=== PATIENT | male | born 1985 | race Caucasian/White ===

== ENCOUNTER 2017-05-26 07:43 | Emergency (ER) | payer OTHER ==
--- NOTE | ~2017-05-26 | CR21 ---
[facility]. [facility] A Service of [facility] & [facility] RADIOLOGY TEXT RESULTS PATIENT: RD LAUGHLIN LOCATION: SED : [birth year] UNIT #: [id number] AGE: [address]: Konstantin Morse MD SEX: M ORDER DR: [id number] [place] [id number] E MR#: [id number] Acc #: [id number] NAME: RD LAUGHLIN : 1985 SEX: M STUDY DATE/TIME: 05/26/2017 8:06 UNIT: SED ROOM: STUDY DESCRIPTION: CR Ankle Min 3 Views Rt Attending Physician: Konstantin Morse M.D. Ordering Physician: Konstantin Morse M.D. Primary Care Physician: No Primary Care Physician MEDICAL IMAGING REPORT This report is preliminary unless electronic signature is present. EXAM 3 views of the right foot. INDICATIONS Pain along the bottom of the foot and posterior ankle since Wednesday. This started while the patient was cutting grass. FINDINGS No acute fracture or subluxation of the right ankle is identified. Patient has some mild enthesopathic changes at the insertion of the Achilles tendon. No aggressive osseous abnormalities are seen. There are no focal soft tissue abnormalities. IMPRESSION No acute disease. Dictated by... Kayli Arroyo M.D. THIS IS AN ELECTRONICALLY VERIFIED REPORT Kayli Arroyo M.D. at 05/27/2017 5:40 PM AFF/gz TD: 05/26/2017 14:15 JOB #: [id number] MEDICAL IMAGING REPORT Page 1 of 1
--- NOTE | ~2017-05-26 | CR127 ---
[facility]. [facility] A Service of [facility] & [facility] RADIOLOGY TEXT RESULTS PATIENT: RD LAUGHLIN LOCATION: SED : [birth year] UNIT #: [id number] AGE: [address]: Konstantin Morse MD SEX: M ORDER DR: [id number] [place] [id number] E MR#: [id number] Acc #: [id number] NAME: RD LAUGHLIN : 1985 SEX: M STUDY DATE/TIME: 05/26/2017 8:06 UNIT: SED ROOM: STUDY DESCRIPTION: CR Foot Complete Min 3 View Rt Attending Physician: Konstantin Morse M.D. Ordering Physician: Konstantin Morse M.D. Primary Care Physician: No Primary Care Physician MEDICAL IMAGING REPORT This report is preliminary unless electronic signature is present. EXAM Three views of the right foot. INDICATIONS Pain along the bottom of the foot and posterior ankle. It started Wednesday after the patient was cutting grass. There is no known injury. FINDINGS No acute fracture or subluxation of the right foot is identified. Patient has some mild enthesopathic change at the insertion of the Achilles tendon. No focal soft tissue abnormalities are seen. Degenerative change is minimal. IMPRESSION No acute findings. Dictated by... Kayli Arroyo M.D. THIS IS AN ELECTRONICALLY VERIFIED REPORT Kayli Arroyo M.D. at 05/27/2017 5:40 PM AFF/bd TD: 05/26/2017 14:06 JOB #: [id number] MEDICAL IMAGING REPORT Page 1 of 1
[~2017-05-26 07:43] MED LIST: AUGMENTIN PO; BACTRIM DS TABL1 TAB PO; CLEOCIN PO; INDOCIN SR75 MG PO; NORCO 5/325 TAB1 TAB PO; PERCOCET5/325 PO; PREDNISONE PO; VICODIN 5/500 T1 TAB PO; VICODIN PO; ZANAFLEX PO
[2017-05-26] MEDS ORDERED: BP MEDICATION (07:51)
[2017-05-26] MEDS ORDERED: AMBIEN10 MG (08:30)
[2017-05-26] MEDS ORDERED: XTAMPZA ER13.5 MG (08:30)
[2017-05-26] MEDS ORDERED: LORTAB 10-3251 EACH (08:30)
[2017-05-26] MEDS ORDERED: ALPRAZOLAM ODT1 MG (08:31)
== END 2017-05-26 08:57 | disposition home or self-care (01) ==
LOC: SED 07:43
DX: M72.2 Plantar fascial fibromatosis (principal); G89.29 Other chronic pain; M51.36 Other intervertebral disc degeneration, lumbar region; Z88.0 Allergy status to penicillin; F17.210 Nicotine dependence, cigarettes, uncomplicated
CPT/HCPCS: 29405; 73610; 73630; 96372; 99283; J1885